=== PATIENT | female | born 1995 | race Caucasian/White ===

== ENCOUNTER 2025-04-04 00:49 | Emergency (ER) | payer MEDICAID ==
[~2025-04-04] VITALS: Ht 154.9 cm; Wt 61.0 kg
[2025-04-04 01:01] VITALS: O2SAT 98
[2025-04-04 03:25] VITALS: BP 137/92; PULSE 70; RESP 18; TEMP 36.2; O2SAT 100
== END 2025-04-04 03:36 | disposition home or self-care (01) ==
LOC: ER 00:49 → EDBD 00:49 → ER 03:36
DX: F10.129 Alcohol abuse with intoxication, unspecified (principal); R11.2 Nausea with vomiting, unspecified; Y90.9 Presence of alcohol in blood, level not specified
CPT/HCPCS: 99283